=== PATIENT | male | born 1965 | race African-American/Black ===

== ENCOUNTER 2020-08-01 07:26 | Emergency (ER) | payer OTHER ==
[2020-08-01 07:41] VITALS: BMI 27.3
[2020-08-01 08:44] VITALS: BP 173/84; PULSE 87
[2020-08-01 10:19] LABS: BASO % 0.4 % (0-2.0); EOS % 0.9 % (0-4.5); HEMATOCRIT 40.1 % (35.4-49); HEMOGLOBIN 13.7 GM/dL (11.7-16.9); MCHC 34.2 g/dl (32.0-35.9); MEAN CELL VOLUME 84.8 fl (80-96); MEAN PLT VOLUME 8.5 fl (7.5-11.1); MONO % 5.5 % (3.8-10.2); NEUT % 84.2 % (42.8-82.8); PLATELET COUNT 248 K/MM3 (134-434); RBC 4.73 M/mm3 (4.00-5.60); RDW 15.4 % (11.9-15.9); WHITE BLOOD COUNT 9.2 K/mm3 (4.0-10.0)
[2020-08-01 11:28] LABS: CHLORIDE 107 mmol/L (98-107); POTASSIUM 4.8 mmol/L (3.5-5.1); SODIUM 137 mmol/L (136-145)
[2020-08-01 11:30] LABS: CALCIUM 8.9 mg/dL (8.5-10.1)
[2020-08-01 11:31] LABS: ALBUMIN 3.8 g/dl (3.4-5.0); ANION GAP 8 MMOL/L (8-16); BLOOD UREA NITROGEN 23.8 mg/dL (7-18); CO2 22 mmol/L (21-32); GLUCOSE,RANDOM 118 mg/dL (74-106)
[2020-08-01 11:34] LABS: CREATININE 1.3 mg/dL (0.55-1.3); SGOT/AST 29 U/L (15-37); SGPT/ALT 29 U/L (13-61)
[2020-08-01 11:36] LABS: BILIRUBIN,TOTAL 0.3 mg/dL (0.2-1); TOT PROT 7.8 g/dl (6.4-8.2)
[2020-08-01 11:37] LABS: ALK PHOS 65 U/L (45-117)
[2020-08-01 13:58] VITALS: TEMP 98.2
== END 2020-08-01 13:58 | disposition home or self-care (01) ==
LOC: JER 07:26
DX: R20.2 Paresthesia of skin (principal); W19.XXXA Unspecified fall, initial encounter
CPT/HCPCS: 36415; 70450-TC; 71045-TC-FY; 72125-TC; 80053; 82550; 82553; 84484; 85025; 93005; 93010; 99284-25